=== PATIENT | male | born 1970 | race Caucasian/White ===

== ENCOUNTER 2020-03-16 16:37 | Observation (INO) ==
[2020-03-16 18:38] LABS: INR 1.1; Prothrombin Time 13.1 Seconds (9.4-12.1)
[2020-03-16 18:39] LABS: Basophils # 0.1 K/mcL (0.0-0.2); Basophils % 0.6 %; Eosinophils # 0.2 K/mcL (0.0-0.6); Eosinophils % 1.6 %; Hematocrit 44.3 % (37.5-50.1); Hemoglobin 14.4 g/dL (12.9-16.9); Immature Granulocytes % 0.5 % (0-4); Lymphocytes # 1.2 K/mcL (0.6-4.6); Lymphocytes % 12.4 %; Mean Corpuscular HGB Conc 32.5 g/dL (31.6-35.5); Mean Corpuscular Hemoglobin 27.3 pg (28.0-33.3); Mean Corpuscular Volume 84.1 fL (83.0-100.0); Mean Platelet Volume 10.1 fL (9.4-12.4); Monocytes % 10.5 %; Neutrophils # 6.9 K/mcL (1.6-8.9); Platelet Count 296 K/mcL (140-400); Red Blood Count 5.27 M/mcL (4.19-5.50); Red Cell Distribution Width 14.9 % (11.5-14.5); Segmented Neutrophils % 74.4 %; White Blood Count 9.3 K/mcL (4.3-11.1)
[2020-03-16 18:41] LABS: Activated Partial Thrombo Time 29.2 Seconds (26.0-36.0)
[2020-03-16 18:50] LABS: BUN/Creatinine Ratio 15 (6-26); Blood Urea Nitrogen 13 mg/dL (6-20); Calcium 8.7 mg/dL (8.6-10.3); Carbon Dioxide 24 mEq/L (23-29); Chloride 104 mEq/L (98-107); Glucose 88 mg/dL (70-105); Magnesium 1.8 mg/dL (1.6-2.6); Osmolality,Calculated 286 (280-300); Potassium 3.9 mEq/L (3.5-5.1); Sodium 138 mEq/L (136-145); Troponin I < 0.03 ng/mL (< 0.04); eGFR For African Americans > 60 (> 60); eGFR For Non-African Americans > 60 (> 60)
[2020-03-16 19:04] LABS: Thyroid Stimulating Hormone 2.086 mcIU/mL (0.340-5.600)
[2020-03-16] MEDS ORDERED: Aspirin 81 MG TAB.CHEW PO STA (20:58)
[2020-03-16] MEDS ORDERED: Naloxone 0.4 MG/ML INJ IVP PRN (23:10)
[2020-03-16] MEDS ORDERED: Perflutren Lipid Microsphere 1.3 ML in 0.9 % Sodium Chloride 8.7 ML IVP PRN (23:14)
[2020-03-17] MEDS: DilTIAZem 50 MG/50 ML IV.SOLN IVC SCH ×3 (01:15→11:36)
[2020-03-17] MEDS: lisinopriL 5 MG TABLET PO SCH ×2 (02:10→08:05)
[2020-03-17] MEDS ORDERED: Melatonin 3 MG TABLET PO ONE (02:30)
[2020-03-17] MEDS: Acetaminophen 325 MG TABLET PO PRN ×2 (02:42→20:41)
[2020-03-17 03:14] LABS: Hematocrit 44.3 % (37.5-50.1); Hemoglobin 14.2 g/dL (12.9-16.9); Mean Corpuscular HGB Conc 32.1 g/dL (31.6-35.5); Mean Corpuscular Hemoglobin 26.1 pg (28.0-33.3); Mean Corpuscular Volume 81.3 fL (83.0-100.0); Platelet Count 321 K/mcL (140-400); Red Blood Count 5.45 M/mcL (4.19-5.50); White Blood Count 9.2 K/mcL (4.3-11.1)
[2020-03-17 03:27] LABS: BUN/Creatinine Ratio 14 (6-26); Blood Urea Nitrogen 11 mg/dL (6-20); Calcium 8.5 mg/dL (8.6-10.3); Carbon Dioxide 23 mEq/L (23-29); Chloride 104 mEq/L (98-107); Chol/HDL Ratio 5.2 (0-4.9); Cholesterol 201 mg/dL (< 200); Glucose 106 mg/dL (70-105); HDL Cholesterol 39 mg/dL (40-59); LDL Cholesterol,Calculated 146 mg/dL (< 100); Osmolality,Calculated 282 (280-300); Potassium 3.5 mEq/L (3.5-5.1); Sodium 136 mEq/L (136-145); Triglycerides 82 mg/dL (< 150); eGFR For African Americans > 60 (> 60); eGFR For Non-African Americans > 60 (> 60)
[2020-03-17 07:28] LABS: Estimated Average Glucose 131 mg/dl
[2020-03-17] MEDS: Aspirin 81 MG TAB.CHEW PO SCH (08:04)
[2020-03-17] MEDS ORDERED: *HR* Digoxin 0.25 MG TABLET PO ONE ×2 (09:02→13:36)
[2020-03-17] MEDS ORDERED: Regadenoson 0.4 MG/5 ML SYRINGE IVP ONE (09:23)
[2020-03-17] MEDS: *HR* Heparin 5,000 UNIT/ML VIAL SQ SCH (17:49)
[2020-03-17] MEDS: lisinopriL 10 MG TABLET PO SCH (20:42)
[2020-03-18] MEDS: *HR* Heparin 5,000 UNIT/ML VIAL SQ SCH (06:34)
[2020-03-18 09:19] LABS: Hematocrit 46.5 % (37.5-50.1); Hemoglobin 15.1 g/dL (12.9-16.9); Mean Corpuscular HGB Conc 32.5 g/dL (31.6-35.5); Mean Corpuscular Hemoglobin 27.2 pg (28.0-33.3); Mean Corpuscular Volume 83.8 fL (83.0-100.0); Mean Platelet Volume 10.1 fL (9.4-12.4); Platelet Count 307 K/mcL (140-400); Red Blood Count 5.55 M/mcL (4.19-5.50); Red Cell Distribution Width 15.1 % (11.5-14.5); White Blood Count 6.5 K/mcL (4.3-11.1)
[2020-03-18 09:33] LABS: BUN/Creatinine Ratio 18 (6-26); Blood Urea Nitrogen 16 mg/dL (6-20); Calcium 9.1 mg/dL (8.6-10.3); Carbon Dioxide 25 mEq/L (23-29); Chloride 105 mEq/L (98-107); Glucose 103 mg/dL (70-105); Magnesium 2.2 mg/dL (1.6-2.6); Osmolality,Calculated 285 (280-300); Phosphorous 3.5 mg/dL (2.7-4.5); Potassium 4.3 mEq/L (3.5-5.1); Sodium 137 mEq/L (136-145); eGFR For African Americans > 60 (> 60); eGFR For Non-African Americans > 60 (> 60)
[2020-03-18] MEDS: lisinopriL 10 MG TABLET PO SCH (09:48)
[2020-03-18] MEDS: Aspirin 81 MG TAB.CHEW PO SCH (09:49)
[2020-03-18] MEDS ORDERED: FLU Vac QV 20-21 (6Month+)/PF 0.5 ML SYRINGE IM ONE (14:06)
[2020-03-18 15:29] VITALS: BP 142/88
[2020-03-18] MEDS ORDERED: Apixaban 5 MG TABLET PO SCH (21:00)
== END 2020-03-18 16:45 | disposition home or self-care (01) ==
LOC: EMEROOARM 16:37 → CDU 16:37 → SUATTDRO 22:17 → CDU 22:53
PROVIDERS: ADMIT Internal Medicine; ATTEND Internal Medicine